=== PATIENT | male | born 1975 | race African-American/Black ===

== ENCOUNTER 2017-06-12 21:28 | Emergency (ER) | payer OTHER ==
[2017-06-12 23:40] LABS: Hematocrit 40 % (42-52); Mean Corpuscular HGB Conc 35 g/dl (31-36); Mean Corpuscular Hemoglobin 32 pg (27-31); Mean Corpuscular Volume 92 fL (80-94); Mean Platelet Volume 8 um3 (7.4-10.4); Red Blood Count 4.34 10^6/ul (4.0-5.4); Red Cell Distribution Width 13 % (10.5-15); White Blood Count 6.4 10^3/ul (3.5-10.8)
[2017-06-13 00:12] LABS: Potassium 3.5 mmol/L (3.5-5.0)
[2017-06-13] MEDS ORDERED: oxyCODONE/Acetamin 5/325 MG* TAB PO ONE (00:12)
--- NOTE | 2017-06-13 00:12 | ED ---
Lower Extremity - HPI Summary HPI Summary: 42M presents from the senior care [facility] with left leg swelling for 8 days. He denies any injury. is on Coumadin. 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 He denies any numbness or tingling. States swelling started above knee and has since traveled down the leg. He does not have an IVF filter. Has taken tyenlol for pain. does not wear compression socks. no family history of blood clots. no chest pain or SOB. kept leg up for past couple days. no rash or fever. had femoral stent placed in left iliac in aug 2016. has been on warfarin since 2007. Has had work up for factor 5 before. has appointment with vascular on tuesday. - History of Current Complaint Chief Complaint: EDExtremityLower Stated Complaint: POSS DVT/LEFT LEG INJURY Time Seen by Provider: 06/12/17 21:58 Pain Intensity: 8 - Allergies/Home Medications Allergies/Adverse Reactions: Allergies Allergy/AdvReac Type Severity Reaction Status Date / Time Lisinopril Allergy Anaphylatic Verified 06/12/17 21:36 Shock PMH/Surg Hx/FS Hx/Imm Hx Endocrine/Hematology History: Reports: Hx Anticoagulant Therapy, Hx Coagulopothy Denies: Hx Blood Disorders Cardiovascular History: Reports: Hx Hypertension Infectious Disease History: Yes Infectious Disease History: Denies: Traveled Outside the [place] in Last 30 Days - Family History Known Family History: Negative: Blood Disorder - Social History Alcohol Use: None Substance Use Type: Reports: None Smoking Status (MU): Former Smoker Review of Systems Negative: Fever Negative: Chest Pain Negative: Shortness Of Breath Positive: Myalgia - left leg, Edema - left leg All Other Systems Reviewed And Are Negative: Yes Physical Exam Triage Information Reviewed: Yes Vital Signs On Initial Exam: Initial Vitals Temp Pulse Resp BP Pulse Ox 98.5 F 73 16 121/75 95 06/12/17 21:32 06/12/17 21:32 06/12/17 21:32 06/12/17 21:32 06/12/17 21:32 Vital Signs Reviewed: Yes Appearance: Positive: Well-Appearing Skin: Positive: Warm, Dry Head/Face: Positive: Normal Head/Face Inspection Eyes: Positive: Normal, Conjunctiva Clear Respiratory/Lung Sounds: Positive: Clear to Auscultation, Breath Sounds Present Cardiovascular: Positive: Normal, RRR Musculoskeletal: Positive: Strength/ROM Intact - left leg, Kamila Sign Left, Edema Left - left leg, Other - good pulses, varicose veins present Neurological: Positive: Sensory/Motor Intact Psychiatric: Positive: Normal Diagnostics - Vital Signs Vital Signs Temp Pulse Resp BP Pulse Ox 06/12/17 21:32 98.5 F 73 16 121/75 95 - Laboratory Lab Results: Lab Results 06/12/17 06/12/17 Range/Units 23:30 23:30 WBC 6.4 (3.5-10.8) 10^3/ul RBC 4.34 (4.0-5.4) 10^6/ul Hgb 14.0 (14.0-18.0) g/dl Hct 40 L (42-52) % MCV 92 (80-94) fL MCH 32 H (27-31) pg MCHC 35 (31-36) g/dl RDW 13 (10.5-15) % Plt Count 219 (150-450) 10^3/ul MPV 8 (7.4-10.4) um3 Neut % (Auto) 56.7 (38-83) % Lymph % (Auto) 30.7 (25-47) % [place] % (Auto) 10.6 H (1-9) % Eos % (Auto) 1.6 (0-6) % Baso % (Auto) 0.4 (0-2) % Absolute Neuts (auto) 3.6 (1.5-7.7) 10^3/ul Absolute Lymphs (auto) 2.0 (1.0-4.8) 10^3/ul Absolute Monos (auto) 0.7 (0-0.8) 10^3/ul Absolute Eos (auto) 0.1 (0-0.6) 10^3/ul Absolute Basos (auto) 0 (0-0.2) 10^3/ul Absolute Nucleated RBC 0 10^3/ul Nucleated RBC % 0 INR (Anticoag Therapy) 3.77 H (0.89-1.11) Result Diagrams: 06/12/17 23:30 06/12/17 23:30 Lab Statement: Any lab studies that have been ordered have been reviewed, and results considered in the medical decision making process. Lower Extremity Course/Dx - Course Course Of Treatment: 42M presents from the senior care system with left leg swelling for 8 days. He denies any injury. is on Coumadin. 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 He denies any numbness or tingling. States swelling started above knee and has since traveled down the leg. He does not have an IVF filter. Has taken tyenlol for pain. does not wear compression socks. no family history of blood clots. no chest pain or SOB. kept leg up for past couple days. no rash or fever. on exam swelling to left leg noted. u/s initial read as chronic popliteal but radiologist gave call and said femoral looks new. spoke with dr pimentel said would not admit but to call heme. talked with dr sapp and said to keep on coumadin as inr 3.7 and will have follow up. patient understand and agrees with plan. - Diagnoses Differential Diagnosis/HQI/PQRI: Positive: DVT, Fracture (Closed), Strain Provider Diagnoses: Left leg DVT - Physician Notifications Discussed Care Of Patient With: dr sapp Time Discussed With Above Provider: 01:00 - keep on inr will give call Discharge - Discharge Plan Condition: Good Disposition: HOME Patient Education Materials: Deep Venous Thrombosis (ED) Referrals: Kingman Correcti, [Primary Care Provider] - Additional Instructions: follow up as scheduled with vascular surgery, may need IVF filter Will need follow up with hematology Return to ED if develop any chest pain or SOB or any new or worsening symptoms
[2017-06-13 00:27] LABS: Albumin 3.7 g/dL (3.2-5.2)
[2017-06-13 00:32] LABS: BUN/Creatinine Ratio 11.6 (8-20); Calcium 8.7 mg/dL (8.6-10.3); EGFR African American 124.2 (>60); EGFR Non-African American 96.6 (>60); Globulin 2.6 g/dL (2-4); Total Bilirubin 0.6 mg/dL (0.2-1.0); Total Protein 6.3 g/dL (6.4-8.9)
[2017-06-13 02:46] VITALS: BP 119/72
--- NOTE | 2017-06-13 07:48 | RAD ---
Indication: Left leg edema. Duplex Doppler sonography of the deep venous system of the left lower extremity deep venous system was performed. Bilaterally the common femoral veins appear patent and compressible. Left proximal greater saphenous vein, proximal deep femoral vein, appear patent and compressible. Duplicated femoral vein is noted. There is thrombosis is partially occlusive 100 duplicated femoral vein. The thrombus is echogenic suggesting that it be chronic. This extends into the left popliteal vein. The posterior tibial veins appear patent. Peroneal veins are not visualized. IMPRESSION: PARTIAL THROMBOSIS OF A BRANCH OF A DUPLICATED FEMORAL VEIN IN ITS MID AND DISTAL PORTION EXTENDING INTO THE POPLITEAL VEIN. THE THROMBUS APPEARS TO BE SOMEWHAT ECHOGENIC AND THIS MAY REPRESENT A CHRONIC THROMBOSIS.
== END 2017-06-13 02:45 | disposition home or self-care (01) ==
LOC: ED 21:28
DX: I82.402 Acute embolism and thrombosis of unspecified deep veins of left lower extremity (principal)
CPT/HCPCS: 36415; 80053; 85025; 85610; 99283; A9270-GY

== ENCOUNTER 2024-08-08 10:16 | Observation (INO) ==
[~2024-08-08 10:16] MED LIST: Dexamethasone IV 4 MG/ML VIAL 1 ml VIAL ONE; Lidocaine 1% w EPI 1:200,000 SDV 30 ML VIAL ONE; Lidocaine 2% PF 5 ML VIAL ONE; Midazolam 2 mg/2 ml VIAL 1 mg/ml 2 ml VIAL (2 mg) ONE; Midazolam 5 mg/5 ml VIAL 1 mg/ml 5 ml VIAL (5 mg) ONE; Naloxone 0.4 mg VIAL 0.4 mg/ml 1 ml VIAL IV PRN; Ondansetron 4 mg VIAL 2 MG/ML 2 ml VIAL IV PRN; Propofol 10 MG/ML 20 ML BTL ONE; ROPIVACAINE 5 MG/ML 30 ML BTL (0.5%) ONE; Rocuronium 50 mg VIAL 10 mg/ml 5 ml VIAL (50 mg) ONE; Sevoflurane BOTTLE ONE; Vancomycin 1,000 MG VIAL ONE; fentaNYL 100 mcg/2 ml 50 MCG/ML VIAL IV PRN; fentaNYL 250 mcg/5 ml 50 MCG/ML 5 ml VIAL (250 MCG) ONE
[2024-08-08] MEDS ORDERED: ceFAZolin 2 GM PREMIX 2 GM/50 ML BAG ONE (10:37)
[2024-08-08] MEDS ORDERED: Dexmedetomidine 200 mcg/2 ml 2 ml VIAL (200 mcg) ONE (10:37)
[2024-08-08] MEDS ORDERED: Tranexamic Acid 1 GM/100ML BAG 2,000 MG/200 ML BAG IV ONE (10:37)
[2024-08-08] MEDS ORDERED: Famotidine IV 10 MG/ML 2 ml VIAL (20 mg) ONE (10:37)
[2024-08-08] MEDS ORDERED: KETAMINE HCL 10 MG/ML 20 ml VIAL (200 MG) ONE (10:37)
[2024-08-08] MEDS: Famotidine IV 10 MG/ML 2 ml VIAL (20 mg) IV ONE (10:52)
[2024-08-08 10:58] LABS: Rapid COVID-19 Molecular Undetected (Undetected)
[2024-08-08] MEDS ORDERED: Dexamethasone IV 4 MG/ML VIAL 1 ml VIAL ONE (11:58)
[2024-08-08] MEDS ORDERED: Rocuronium 50 mg VIAL 10 mg/ml 5 ml VIAL (50 mg) ONE (12:17)
[2024-08-08] MEDS ORDERED: Ondansetron 4 mg VIAL 2 MG/ML 2 ml VIAL ONE (12:28)
[2024-08-08] MEDS ORDERED: Phenylephrine IV 10 MG/ML 1 ml VIAL ONE (13:38)
[2024-08-08] MEDS ORDERED: Lidocaine 2% PF 5 ML VIAL ONE (14:58)
[2024-08-08] MEDS ORDERED: Ondansetron 4 mg VIAL 2 MG/ML 2 ml VIAL IV PRN (15:44)
[2024-08-08] MEDS ORDERED: Ondansetron ODT 4 mg TAB 4 MG TAB PO PRN (15:44)
[2024-08-08] MEDS ORDERED: Lactulose 30 ml UDC PO PRN (15:44)
[2024-08-08] MEDS ORDERED: Magnesium Hydroxide LIQ 30 ML UDC PO PRN (15:44)
[2024-08-08] MEDS: Lactated Ringers 1000 ml BAG 1,000 ML IV SCH ×2 (17:51→18:31)
[2024-08-08] MEDS: Buffered Lidocaine 1% SYRIN 1 ml INTRADERM ONE (17:51)
[2024-08-08] MEDS: ceFAZolin 1 GM ADVAN 1 GM in NS 0.9% 50 ML 50 ML IVPB SCH (20:40)
[2024-08-08] MEDS: Magnesium Hydroxide LIQ 30 ML UDC PO SCH (20:41)
[2024-08-09 06:01] LABS: Hematocrit 35.2 % (38-53); Hemoglobin 11.9 g/dL (13.2-16.3); Mean Platelet Volume 8.8 fL (7.5-11.2); Platelet Count 220 10^3/uL (150-450)
[2024-08-09 06:20] LABS: Calcium 8.7 mg/dL (8.6-10.3); Creatinine, Serum 0.9 mg/dL (0.67-1.17); Potassium 4.3 mmol/L (3.5-5.0); eGFR CKD-EPI 103.4 (>60)
[2024-08-09] MEDS: Vitamin THERAPEUTIC TAB PO SCH (08:55)
[2024-08-09] MEDS: Calcium Carb (TUMS) 500 mg CHEW TAB PO PRN (11:30)
[2024-08-09 14:39] VITALS: BP 111/75
== END 2024-08-09 15:00 ==
LOC: SSU 10:16 → OR 10:16
PROVIDERS: ADMIT Orthopaedic Surgery; ATTEND Orthopaedic Surgery